=== PATIENT | female | born 1965 | race Caucasian/White ===

== ENCOUNTER 2017-03-30 12:41 | Emergency (ER) | payer OTHER ==
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
[2017-03-30 14:51] VITALS: BP 144/75; PULSE 84; RESP 16; TEMP 98.2; O2SAT 96
== END 2017-03-30 14:49 | disposition home or self-care (01) ==
LOC: EDUNIT#
DX: S52.515A Nondisplaced fracture of left radial styloid process, initial encounter for closed fracture (principal); V47.5XXA Car driver injured in collision with fixed or stationary object in traffic accident, initial encounter; Y92.410 Unspecified street and highway as the place of occurrence of the external cause; Y99.8 Other external cause status; Y93.89 Activity, other specified
CPT/HCPCS: A4565